=== PATIENT | male | born 1970 | race Caucasian/White ===

== ENCOUNTER 2020-08-07 04:43 | Emergency (ER) | payer OTHER ==
[2020-08-07] MEDS ORDERED: KETOROLAC 30 MG/ML INJ ONE (05:35)
--- NOTE | 2020-08-07 06:37 | ER ---
Nurse's Notes Formerly [facility] Name: Gilbert Murillo Age: 49 yrs Sex: Male : 1970 Arrival Date: 08/07/2020 Time: 04:46 Bed 8 Private MD: Diagnosis: Fall-Mechanical;Left Shoulder Contusion;Back Contusion;Left Hip Contusion;Cervical Strain Presentation: 08/07 04:47 Chief complaint: Patient states: HIT HEAD, WITH HARD HAT ON, DENIES LOC, DENIES PAIN ON rv THE HEAD. OVERALL PAIN SCALE OF 8/10. EMS states: HE FELL IN THE CONTROL ROOM, ON HIS LEFT SIDE, HURTING LEFT HIP, LEFT SHOULDER, AND NECK. WITH HISTORY OF HIP REPLACEMENTS. Care prior to arrival: None. Mechanism of Injury: Fall from standing position. Trauma event details: Injury occurred in the [facility], Injury occurred: in an industrial place of business Injury occurred: August 07, 2020 Injury occurred at: 04:00. 04:47 Acuity: STERL[place] 3 rv 04:47 Method Of Arrival: EMS: [facility] rv 04:51 Coronavirus screen: Client denies travel out of the [place] in the last 14 days. Ebola rv Screen: No symptoms or risks identified at this time. Initial Sepsis Screen: Does the patient meet any 2 criteria? No. Patient's initial sepsis screen is negative. Does the patient have a suspected source of infection? No. Patient's initial sepsis screen is negative. Risk Assessment: Do you want to hurt yourself or someone else? Patient reports no desire to harm self or others. Onset of symptoms was August 07, 2020 at 04:00. Trauma Activation: Not Applicable Physician: ED Physician; Name: ; Notified At: ; Arrived At: Physician: General Surgeon; Name: ; Notified At: ; Arrived At: Physician: Radiology; Name: ; Notified At: ; Arrived At: Physician: Respiratory; Name: ; Notified At: ; Arrived At: Physician: Lab; Name: ; Notified At: ; Arrived At: Historical: - Allergies: 04:52 No Known Allergies; rv - PMHx: 04:52 Rheumatoid Arthritis; rv - PSHx: 04:52 HIP REPLACEMENT; rv - Immunization history: Last tetanus immunization: - up to date. - Social history:: Smoking status: Patient denies any tobacco usage or history of. Screenin:50 Abuse screen: Denies threats or abuse. Denies injuries from another. Tuberculosis rv screening: No symptoms or risk factors identified. 04:51 Nutritional screening: No deficits noted. Fall Risk No fall in past 12 months (0 pts). rv No secondary diagnosis (0 pts). Mental Status- Oriented to own ability (0 pts). Total Jacobs Fall Scale indicates No Risk (0-24 pts). Primary Survey: 04:50 NO uncontrolled hemorrhage observed. Breathing/Chest: Respiratory pattern: regular. rv Circulation: Skin color: pink. Disability Alert. Exposure/Environment: There is no evidence of uncontrolled external bleeding. No obvious injuries are noted at this time. A warming method has been applied: A warm blanket has been provided to the patient. 04:53 Reassessment Breathing/Chest Respiratory pattern Regular Circulation Color [place] rv Disability Alert. Secondary Survey: 04:50 HEENT: No deficits noted. Gastrointestinal: No deficits noted. : No deficits noted. rv Musculoskeletal: No signs and/or symptoms reported regarding the musculoskeletal system. Assessment: 04:47 General: Appears uncomfortable, Behavior is calm, cooperative. Pain: Complains of pain rv in LEFT HIP, LEFT SHOULDER, NECK. Neuro: Level of Consciousness is awake, alert, obeys commands, Oriented to person, place, time, situation. EENT: No signs and/or symptoms were reported regarding the EENT system. Cardiovascular: Patient's skin is warm and dry. Respiratory: Airway is patent Respiratory effort is even, unlabored. Derm: Skin is intact. Vital Signs: 04:50 BP 140 / 91; Pulse 88; Resp 18; Temp 98.7; Pulse Ox 97% ; Weight 113.4 kg; Height 6 ft. rv 0 in. (182.88 cm); Pain 8/10; 06:42 BP 132 / 90; Pulse 82; Resp 18; Pulse Ox 97% on R/A; rv 04:50 Body Mass Index 33.91 (113.40 kg, 182.88 cm) rv [place] Coma Score: 04:50 Eye Response: spontaneous(4). Verbal Response: oriented(5). Motor Response: obeys rv commands(6). Total: 15. Trauma Score (Adult): 04:50 Eye Response: spontaneous(1); Verbal Response: oriented(1); Motor Response: obeys rv commands(2); Systolic BP: > 89 mm Hg(4); Respiratory Rate: 10 to 29 per min(4); Sherri Score: 15; Trauma Score: 12 ED Course: 04:46 Patient arrived in ED. rv 04:49 Evan Cordero MD is Attending Physician. mh7 04:49 Triage completed. rv 04:50 Patient has correct armband on for positive identification. rv 04:50 Patient maintains SpO2 saturation greater than 95% on room air. rv 04:52 Arm band placed on right wrist. Patient placed in the treatment room, on a stretcher, rv Patient notified of wait time. 04:52 Thermoregulation: warm blanket given to patient. rv 05:14 Julius Pradhan RN is Primary Nurse. rv 06:35 CT Lumbar Spine Wo Con In Process Unspecified. EDMS 06:35 Shoulder Left (2 View) XRAY In Process Unspecified. EDMS 06:35 Hip Left 2 View XRAY In Process Unspecified. EDMS 06:35 Pelvis XRAY In Process Unspecified. EDMS 06:35 En Funk MD is Referral Physician. mh7 06:37 Head C Spine Mpr Wo Con In Process Unspecified. EDMS 06:41 No provider procedures requiring assistance completed. Patient did not have IV access rv during this emergency room visit. Administered Medications: 05:21 Drug: TORadol 60 mg Route: IM; Site: left gluteus; rv 06:42 Follow up: Response: No adverse reaction rv Output: 06:42 Urine: 0ml; Total: 0ml. rv Outcome: 06:37 Discharge ordered by . mh7 06:41 Discharged to home ambulatory. rv 06:41 Condition: good 06:41 Discharge instructions given to patient, Instructed on discharge instructions, follow up and referral plans. Demonstrated understanding of instructions, follow-up care. 06:42 Patient's length of stay was not longer than 2 hours. rv 06:43 Patient left the ED. rv Signatures: Dispatcher [employer] EDMS Julius Pradhan RN RN rv Evan Cordero MD MD [facility]
--- NOTE | 2020-08-07 06:38 | EDPHYS ---
Physician Documentation [facility] Name: Gilbert Murillo Age: 49 yrs Sex: Male : 1970 Arrival Date: 08/07/2020 Time: 04:46 Bed 8 Private MD: ED Physician Evan Cordero HPI: 08/07 05:14 This 49 yrs old Male presents to ER via EMS with complaints of Fall Injury. [facility] 05:14 Details of fall: The patient fell from an upright position, while walking, and struck a mh7 concrete surface. Onset: The symptoms/episode began/occurred this morning, today. Associated injuries: The patient sustained neck injury, contusion, pain, pain with movement, tenderness, injury to the low back, pain, pain with movement, tenderness, left shoulder. Severity of symptoms: At their worst the symptoms were moderate, earlier today, in the emergency department the symptoms are unchanged. Slipped and fell on icy surface, Denies head trauma or LOC.. Historical: - Allergies: 04:52 No Known Allergies; rv - PMHx: 04:52 Rheumatoid Arthritis; rv - PSHx: 04:52 HIP REPLACEMENT; rv - Immunization history: Last tetanus immunization: - up to date. - Social history:: Smoking status: Patient denies any tobacco usage or history of. ROS: 05:14 Constitutional: Negative for fever, chills, and weight loss, Eyes: Negative for injury, mh7 pain, redness, and discharge, ENT: Negative for injury, pain, and discharge, Cardiovascular: Negative for chest pain, palpitations, and edema, Respiratory: Negative for shortness of breath, cough, wheezing, and pleuritic chest pain, Abdomen/GI: Negative for abdominal pain, nausea, vomiting, diarrhea, and constipation, : Negative for injury, bleeding, discharge, and swelling, Skin: Negative for injury, rash, and discoloration, Neuro: Negative for headache, weakness, numbness, tingling, and seizure, Psych: Negative for depression, anxiety, suicide ideation, homicidal ideation, and hallucinations, Allergy/Immunology: Negative for hives, rash, and allergies, Endocrine: Negative for neck swelling, polydipsia, polyuria, polyphagia, and marked weight changes, Hematologic/Lymphatic: Negative for swollen nodes, abnormal bleeding, and unusual bruising. Exam: 05:14 Constitutional: This is a well developed, well nourished patient who is awake, alert, mh7 and in no acute distress. Head/Face: Normocephalic, atraumatic. Eyes: Pupils equal round and reactive to light, extra-ocular motions intact. Lids and lashes normal. Conjunctiva and sclera are non-icteric and not injected. Cornea within normal limits. Periorbital areas with no swelling, redness, or edema. ENT: Nares patent. No nasal discharge, no septal abnormalities noted. Tympanic membranes are normal and external auditory canals are clear. Oropharynx with no redness, swelling, or masses, exudates, or evidence of obstruction, uvula midline. Mucous membranes moist. 05:14 Chest/axilla: Normal chest wall appearance and motion. Nontender with no deformity. No lesions are appreciated. Cardiovascular: Regular rate and rhythm with a normal S1 and S2. No gallops, murmurs, or rubs. Normal PMI, no JVD. No pulse deficits. Respiratory: Lungs have equal breath sounds bilaterally, clear to auscultation and percussion. No rales, rhonchi or wheezes noted. No increased work of breathing, no retractions or nasal flaring. Abdomen/GI: Soft, non-tender, with normal bowel sounds. No distension or tympany. No guarding or rebound. No evidence of tenderness throughout. 05:14 Skin: Warm, dry with normal turgor. Normal color with no rashes, no lesions, and no evidence of cellulitis. 05:14 Neuro: Awake and alert, GCS 15, oriented to person, place, time, and situation. Cranial nerves II-XII grossly intact. Motor strength 5/5 in all extremities. Sensory grossly intact. Cerebellar exam normal. Normal gait. Psych: Awake, alert, with orientation to person, place and time. Behavior, mood, and affect are within normal limits. 05:14 Neck: External neck: tenderness, that is mild, of the left mid cervical area and left trapezius, C-spine: appears grossly normal, no vertebral tenderness, no crepitus, Thyroid: appears normal, Trachea: is midline with no obvious abnormalities, ROM/movement: limited range of motion, is not appreciated, Lymph nodes: no appreciated lymphadenopathy. 05:14 Back: pain, that is moderate, of the lumbar area, ROM is painful, with all movement, normal spinal alignment noted, CVA tenderness, is absent, vertebral tenderness, is appreciated at lumbar, muscle spasm, is not present, Straight leg raises: of both lower extremities does not illicit pain. 05:14 Musculoskeletal/extremity: Extremities: noted in the left shoulder: pain, tenderness, noted in the left hip: tenderness, ROM: limited active range of motion due to pain, in the left shoulder, Circulation is intact in all extremities. Pulses: are normal with no appreciated deficits, Perfusion: the patient is normally perfused throughout, Perfusion: the extremity is normally perfused throughout, Calf tenderness, is absent, Edema, is not appreciated, Sensation intact. Compartment Syndrome exam of affected extremity: is normal. no numbness, no tingling, no sensation deficit, no palor, no weak pulses, Joints: the left shoulder displays pain at rest, painful range of motion, tenderness, the left hip displays tenderness, Tendon exam: specific tendon testing normal through active and passive range of motion Vital Signs: 04:50 BP 140 / 91; Pulse 88; Resp 18; Temp 98.7; Pulse Ox 97% ; Weight 113.4 kg; Height 6 ft. rv 0 in. (182.88 cm); Pain 8/10; 06:42 BP 132 / 90; Pulse 82; Resp 18; Pulse Ox 97% on R/A; rv 04:50 Body Mass Index 33.91 (113.40 kg, 182.88 cm) rv [place] Coma Score: 04:50 Eye Response: spontaneous(4). Verbal Response: oriented(5). Motor Response: obeys rv commands(6). Total: 15. Trauma Score (Adult): 04:50 Eye Response: spontaneous(1); Verbal Response: oriented(1); Motor Response: obeys rv commands(2); Systolic BP: > 89 mm Hg(4); Respiratory Rate: 10 to 29 per min(4); Sherri Score: 15; Trauma Score: 12 MDM: 06:33 Differential diagnosis: abrasion, closed head injury, contusion, fracture, sprain, mh7 strain. Data reviewed: vital signs, nurses notes, EMS record, radiologic studies, CT scan, plain films. Data interpreted: Pulse oximetry: on room air is 97 %. Interpretation: normal. Counseling: I had a detailed discussion with the patient and/or guardian regarding: the historical points, exam findings, and any diagnostic results supporting the discharge/admit diagnosis, the presence of at least one elevated blood pressure reading (>120/80) during this emergency department visit, radiology results, the need for outpatient follow up, a orthopedic surgeon, to return to the emergency department if symptoms worsen or persist or if there are any questions or concerns that arise at home. Response to treatment: the patient's symptoms have markedly improved after treatment. 06:37 Patient medically screened. [facility] 08/07 05:14 Order name: CT C Spine [facility] 08/07 05:14 Order name: CT Lumbar Spine Wo Con [facility] 08/07 05:14 Order name: Shoulder Left (2 View) XRAY [facility] 08/07 05:14 Order name: Hip Left 2 View XRAY [facility] 08/07 05:14 Order name: Pelvis XRAY [facility] 08/07 05:28 Order name: CT Head Brain wo Cont [facility] 08/07 06:37 Order name: Head C Spine Mpr Wo Con EDMS Administered Medications: 05:21 Drug: TORadol 60 mg Route: IM; Site: left gluteus; rv 06:42 Follow up: Response: No adverse reaction rv Disposition: 08/07/20 06:37 Discharged to Home. Impression: Fall-Mechanical, Left Shoulder Contusion, Back Contusion, Left Hip Contusion, Cervical Strain. - Condition is Stable. - Discharge Instructions: Contusion, [id number], Cervical Sprain, [id number], Back Pain, Adult, [id number]. - Medication Reconciliation Form, Thank You Letter, Antibiotic Education, Prescription Opioid Use form. - Follow up: Private Physician; When: 1 - 2 days; Reason: Worsening of condition, Recheck today's complaints, Continuance of care, Re-evaluation by your physician. Follow up: En Funk MD; When: 1 - 2 days; Reason: Worsening of condition, Recheck today's complaints. - Problem is new. - Symptoms have improved. Signatures: Dispatcher [employer] EDJulius Alvarez RN RN rv Evan Cordero MD MD mh7 Corrections: (The following items were deleted from the chart) 06:43 06:37 08/07/2020 06:37 Discharged to Home. Impression: Fall-Mechanical; Left Shoulder rv Contusion; Back Contusion; Left Hip Contusion; Cervical Strain. Condition is Stable. Forms are Medication Reconciliation Form, Thank You Letter, Antibiotic Education, Prescription Opioid Use. Follow up: Private Physician; When: 1 - 2 days; Reason: Worsening of condition, Recheck today's complaints, Continuance of care, Re-evaluation by your physician. Follow up: En Funk; When: 1 - 2 days; Reason: Worsening of condition, Recheck today's complaints. Problem is new. Symptoms have improved. mh7
[2020-08-07 06:47] VITALS: TEMP 98.7; O2SAT 97
[2020-08-07 06:48] VITALS: BP 132/90
--- NOTE | 2020-08-07 08:36 | RAD REPORT ---
EXAM DESCRIPTION: RAD - Shoulder Left 2 View - 08/07/2020 5:36 am CLINICAL HISTORY: trauma, fall with shoulder pain COMPARISON: No comparisons TECHNIQUE: Internal and external rotation views of the left shoulder were obtained. FINDINGS: There is no fracture or dislocation. No AC separation. There is a moderately large inferio rly directed spur encroaching on the narrowed acromial humeral joint space. No abnormal soft tissue c alcifications. No significant surrounding soft tissue finding. IMPRESSION: No fracture, dislocation or acute finding identifiable. Clavicle spur at the AC joint encroaches on the supraspinatus musculotendinous junction.
--- NOTE | 2020-08-07 08:39 | RAD REPORT ---
EXAM DESCRIPTION: RAD - Pelvis - 08/07/2020 5:57 am CLINICAL HISTORY: TRAUMAfall, pelvic and hip pain COMPARISON: CT ABD PELVIS W CONTRAST dated 04/18/2011 TECHNIQUE: AP imaging of the pelvis was obtained. FINDINGS: L5-S1 facet joint degenerative changes are present prominent for age but incompletely asse ssed. No sacral ala fracture or SI joint abnormality. No acute fracture of the pelvis. Patient has bi lateral total hip prostheses in place. No acute component seen. IMPRESSION: Negative pelvis for acute traumatic injury. Lumbosacral facet joint degenerative change present, advanced for age, but incompletely evaluated.
--- NOTE | 2020-08-07 08:40 | RAD REPORT ---
EXAM DESCRIPTION: RAD - Hip Left 2 View - 08/07/2020 5:57 am CLINICAL HISTORY: trauma, fall, hip pain COMPARISON: No comparisons FINDINGS: AP and frogleg views of the left hip were obtained. Left total knee prosthesis in place. No suspicion for loosening of the implant components. No subside nce of the femoral component. No fracture of the proximal left femur or left hemipelvis. No acute or destructive bony process seen. No soft tissue abnormality. IMPRESSION: Negative left hip examination for acute or significant findings.
--- NOTE | 2020-08-07 13:50 | RAD REPORT ---
EXAM DESCRIPTION: CT - [id number] - 08/07/2020 6:21 am CLINICAL HISTORY: The patient is 49 years old and is Male; trauma TECHNIQUE: Axial computed tomography images of the head/brain and cervical spine without intravenous contrast. Sagittal and coronal reformatted images were created and reviewed. This CT exam was pe rformed using one or more of the following dose reduction techniques: automated exposure control, a djustment of the mA and/or kV according to patient size, and/or use of iterative reconstruction techn ique. COMPARISON: No relevant prior studies available. FINDINGS: BRAIN: Unremarkable. No hemorrhage. No significant white matter disease. No edema. VENTRICLES: Unremarkable. No ventriculomegaly. SKULL: No acute fracture. SINUSES: Unremarkable as visualized. No acute sinusitis. MASTOID AIR CELLS: Unremarkable as visualized. No mastoid effusion. VERTEBRAE: Reversal of the normal cervical curvature is present. The vertebral body heights and alignment are maintained. There is no acute fracture. DISCS/SPINAL CANAL/NEURAL FORAMINA: Multilevel intervertebral disc space narrowing with osteophyt e formation from C4 through C7 is present. Mild bilateral neural foraminal narrowing secondary to pos terior disc osteophyte complex from C4 through C7 is noted. Minimal canal narrowing is present. SOFT TISSUES: The soft tissues are normal. LUNG APICES: Unremarkable as visualized. IMPRESSION: 1. No acute intracranial findings. 2. Reversal of the normal cervical curvature is present. Findings may be secondary to patient pos ition versus muscle spasm. Electronically signed by: Leah Narayanan MD 08/07/2020 5:58 AM [employer] Due to temporary technical issues with the PACS/Fluency reporting system, reports are being signed by the in house radiologists without review as a courtesy to insure prompt reporting. The interpreting radiologist is fully responsible for the content of the report.
--- NOTE | 2020-08-07 15:20 | RAD REPORT ---
EXAM DESCRIPTION: CT - Spine Lumbar Wo Con - 08/07/2020 6:22 am CLINICAL HISTORY: The patient is 49 years old and is Male; trauma TECHNIQUE: Axial computed tomography images of the lumbar spine without intravenous contrast. Sagi ttal and coronal reformatted images were created and reviewed. This CT exam was performed using one or more of the following dose reduction techniques: automated exposure control, adjustment of the mA and/or kV according to patient size, and/or use of iterative reconstruction technique. COMPARISON: No relevant prior studies available. FINDINGS: VERTEBRAE: The vertebral body heights and alignment are maintained. There is no acute fr acture. DISCS/SPINAL CANAL/NEURAL FORAMINA: Intervertebral disc space narrowing and vacuum disc phenomena at L5-S1 is present. Minimal disc bulges at L3-L4 and L5-S1 are present. Minimal bilateral neural fo raminal narrowing at these levels is present. There is no significant canal stenosis. Minimal anterio r osteophyte formation at L3-L4 is present. SOFT TISSUES: The soft tissues are normal. IMPRESSION: Mild spondylosis of the lumbar spine without acute findings. Electronically signed by: Leah Narayanan MD 08/07/2020 5:59 AM [facility] Due to temporary technical issues with the PACS/Fluency reporting system, reports are being signed by the in house radiologists without review as a courtesy to insure prompt reporting. The interpreting radiologist is fully responsible for the content of the report.
== END 2020-08-07 06:43 | disposition home or self-care (01) ==
LOC: ER 04:43
DX: S16.1XXA Strain of muscle, fascia and tendon at neck level, initial encounter (principal); S40.012A Contusion of left shoulder, initial encounter; S70.02XA Contusion of left hip, initial encounter; S30.0XXA Contusion of lower back and pelvis, initial encounter; W00.0XXA Fall on same level due to ice and snow, initial encounter; Y93.01 Activity, walking, marching and hiking; Y92.89 Other specified places as the place of occurrence of the external cause
CPT/HCPCS: 70450; 72125; 72131; 72170; 96372; 99284